=== PATIENT | female | born 1965 | race Caucasian/White ===

== ENCOUNTER 2021-02-11 13:55 | Outpatient (REF) | payer SELFPAY ==
[2021-02-11 21:43] LABS: TSH (W/Ref FT4) 1.42 uIU/mL (0.36-3.74)
[2021-02-13 14:02] LABS: ANA Interpretation Negative (Negative)
== END 2021-02-11 13:56 | disposition home or self-care (01) ==
LOC: NCHCN 13:55
PROVIDERS: Visit Provider Nurse Practitioner Community Health
DX: L80 Vitiligo (principal)
CPT/HCPCS: 84443; 86038